=== PATIENT | female | born 1975 | race Caucasian/White ===

== ENCOUNTER 2018-05-30 10:02 | Inpatient (IN) | payer MEDICAID ==
[~2018-05-30] VITALS: Ht 172.7 cm; Wt 99.8 kg
[2018-05-30] MEDS ORDERED: ONDANSETRON HCL 4 MG/2 ML VIAL IV ONE (12:30)
[2018-05-30] MEDS ORDERED: MORPHINE SULFATE 4 MG/ML SYR/VIAL IV ONE (12:30)
[2018-05-30 13:00] LABS: Basophils # (auto) 0 uL; Basophils % (auto) 0.2 % (0.0-2.0); Eosinophils # (auto) 0.1 uL; Eosinophils % (auto) 0.3 % (0.0-7.0); Hemoglobin 14.3 g/dL (12.2-16.2); Lymphocytes # (auto) 1.1 uL; Lymphocytes % (auto) 5.8 % (10.0-50.0); Mean Corpuscular Hemoglobin 28.2 pg (28.0-32.0); Mean Corpuscular Volume 82.9 fL (80.0-100.0); Monocytes # (auto) 0.9 uL; Monocytes % (auto) 4.5 % (0.0-12.0); Neutrophils # (auto) 17.6 uL; Neutrophils % (auto) 89.2 % (37.0-80.0); Platelet Count (auto) 310 10^3/uL (140-450); Red Blood Cells 5.07 10^6/uL (4.0-5.20); Red Cell Distribution Width 14.4 % (11.8-14.3); White Blood Cell 19.7 10^3/uL (4.4-10.8)
[2018-05-30 13:12] LABS: Albumin 3.4 g/dL (3.4-5.0); Anion Gap 8 (5-15); BUN/Creatinine Ratio 18.5; Blood Alcohol < 3.0 mg/dL (0-5); Blood Urea Nitrogen 15 mg/dL (7-18); Calcium 8.2 mg/dL (8.5-10.1); Carbon Dioxide 30 mmol/L (21-32); Chloride 103 mmol/L (98-107); GFR African American 99 mL/min; GFR Non-African American 82 mL/min; Glucose 93 mg/dL (74-106); Sodium 141 mmol/L (136-145)
[2018-05-30 13:21] LABS: Alanine Aminotransferase 64 U/L (13-56); Alkaline Phosphatase 88 U/L (45-117); Aspartate Aminotransferase 72 U/L (15-37); Bilirubin, Total 0.4 mg/dL (0.2-1.0); Total Protein 8.1 g/dL (6.4-8.2)
[2018-05-30 13:28] LABS: Potassium 2.4 mmol/L (3.5-5.1)
[2018-05-30] MEDS ORDERED: HYDROcodone-ACET 10/325MG TAB PO ONE (13:30)
[2018-05-30] MEDS ORDERED: POTASSIUM CHL 20 Meq TABLET PO ONE ×2 (13:30)
[2018-05-30 14:04] LABS: Amphetamine Screen, Urine NEGATIVE (NEGATIVE); Barbiturate Scree,Urine NEGATIVE (NEGATIVE); Benzodiazephine Screen, Urine NEGATIVE (NEGATIVE); Cannabinoid Screen, Urine NEGATIVE (NEGATIVE); Cocaine Screen, Urine NEGATIVE (NEGATIVE); Opiate Scree,Urine NEGATIVE (NEGATIVE); Phencyclidine Screen, Urine NEGATIVE (NEGATIVE)
[2018-05-30 14:08] LABS: Urine Bacteria FEW /hpf (None Seen); Urine Blood Negative /uL (Negative); Urine Hyaline Cast FEW /lpf (0 - 2); Urine Mucus FEW (None Seen); Urine Specific Gravity 1.031 (1.001-1.035); Urine WBC 6 /hpf (0 - 5)
[2018-05-30] MEDS ORDERED: ALPRAZolam 0.5 MG TAB PO PRN (15:30)
[2018-05-30] MEDS ORDERED: HYDROcodone-ACET 10/325MG TAB PO PRN (15:30)
[2018-05-30] MEDS ORDERED: PANTOPRAZOLE 40 MG TAB PO ONE (15:30)
[2018-05-30] MEDS ORDERED: LEVOFLOXACIN 500MG 100 ML IV ONE (15:30)
[2018-05-30] MEDS ORDERED: diphenhdrAMINE HCL 25 MG CAP PO PRN (15:30)
[2018-05-30] MEDS ORDERED: DOCUSATE SOD 100 MG CAP PO PRN (15:45)
[2018-05-30] MEDS ORDERED: NITROGLYCERIN 0.4 MG SL TAB SL PRN (15:45)
[2018-05-30] MEDS ORDERED: ONDANSETRON HCL 4 MG/2 ML VIAL IV PRN (15:45)
[2018-05-30] MEDS ORDERED: ACETAMINOPHEN 325 MG TAB PO PRN (15:45)
[2018-05-30] MEDS ORDERED: MORPHINE SULF INJ 2 MG/ML SYRINGE 1ML IV PRN ×2 (15:45)
[2018-05-30] MEDS ORDERED: TEMAZEPAM 15 MG CAP PO PRN (15:45)
[2018-05-30 15:53] VITALS: BP 107/55
[2018-05-30] MEDS ORDERED: ALBUTEROL SULF 2.5 MG/0.5ML(0.5%) NEB SOLN NEB SCH (18:00)
[2018-05-30 19:32] VITALS: BP 93/41
[2018-05-30] MEDS ORDERED: SODIUM CHLOR 0.9% PF (SALINE LOCK) 10ML VIAL/SYR IV SCH (22:00)
[2018-05-30] MEDS ORDERED: traZODone HCL 50 MG TAB PO SCH (22:00)
[2018-05-30] MEDS ORDERED: MORPHINE SULF 30 mg ER tab PO SCH (22:00)
[2018-05-30] MEDS ORDERED: TIZANIDINE 6 MG PO SCH (22:00)
[2018-05-30] MEDS ORDERED: FAMOTIDINE 20 MG TAB PO SCH (22:00)
[2018-05-30] MEDS ORDERED: ATENOLOL 25 MG TAB PO SCH (22:00)
[2018-05-30] MEDS ORDERED: FLUTICASONE PROP NASAL SPR 0.05 % (50MCG) 16GM EACHNOSTRI SCH (22:00)
[2018-05-30] MEDS ORDERED: IBUPROFEN 800 MG TAB PO SCH (22:00)
[2018-05-30] MEDS ORDERED: ASCORBIC ACID 500 MG TAB PO SCH (22:00)
[2018-05-30] MEDS ORDERED: ATORVASTATIN 20 MG TAB PO SCH (22:00)
[2018-05-30] MEDS ORDERED: GABAPENTIN 400 MG CAP PO SCH (22:00)
[2018-05-30] MEDS ORDERED: BACLOFEN 10 MG TAB PO SCH (22:00)
[2018-05-31] MEDS ORDERED: LORATADINE 10 MG TAB PO SCH (10:00)
[2018-05-31] MEDS ORDERED: LISINOPRIL 10 MG TAB PO SCH (10:00)
[2018-05-31] MEDS ORDERED: PANTOPRAZOLE 40 MG TAB PO SCH (10:00)
[2018-05-31] MEDS ORDERED: LEVOFLOXACIN 500MG 100 ML IV SCH (10:00)
[2018-05-31] MEDS ORDERED: MULTIPLE VITAMIN TAB PO SCH (10:00)
[2018-05-31] MEDS ORDERED: PARoxetine 20 MG TAB PO SCH (10:00)
[2018-05-31] MEDS ORDERED: ZINC SULFATE 220mg CAP or TAB PO SCH (10:00)
[2018-05-31] MEDS ORDERED: ASCORBIC ACID 500 MG TAB PO SCH (10:00)
== END 2018-05-30 19:58 | disposition short-term general hospital (02) | DRG 930 ==
LOC: ER 10:02 → EDBD 10:02 → TELE 10:03
PROVIDERS: ADMIT Internal Medicine; ATTEND Internal Medicine
DX: S22.43XA Multiple fractures of ribs, bilateral, initial encounter for closed fracture (principal); S32.491A Other specified fracture of right acetabulum, initial encounter for closed fracture; E83.51 Hypocalcemia; N39.0 Urinary tract infection, site not specified; S62.101A Fracture of unspecified carpal bone, right wrist, initial encounter for closed fracture; E87.6 Hypokalemia; E78.5 Hyperlipidemia, unspecified; F41.9 Anxiety disorder, unspecified; G89.4 Chronic pain syndrome; M46.90 Unspecified inflammatory spondylopathy, site unspecified; I12.9 Hypertensive chronic kidney disease with stage 1 through stage 4 chronic kidney disease, or unspecified chronic kidney disease; N18.2 Chronic kidney disease, stage 2 (mild); M17.11 Unilateral primary osteoarthritis, right knee; J98.11 Atelectasis; J45.909 Unspecified asthma, uncomplicated; Z98.84 Bariatric surgery status; Z90.710 Acquired absence of both cervix and uterus; V89.2XXA Person injured in unspecified motor-vehicle accident, traffic, initial encounter; Y92.410 Unspecified street and highway as the place of occurrence of the external cause; Y93.89 Activity, other specified; Y99.8 Other external cause status
CPT/HCPCS: 36415; 51702; 70450; 71250; 72125; 73030; 73110; 73502; 73562; 74176; 80053; 80307; 80320; 81001; 85025; 87086; 96365; 96375; J1956; J2405